=== PATIENT | female | born 1945 | race Caucasian/White ===

== ENCOUNTER 2018-11-27 02:09 | Outpatient (CLI) | payer MEDICARE, BC, SELFPAY ==
[2018-11-27 11:47] LABS: ALT 22 U/L (12-78); AST 14 U/L (15-37); Albumin 3.5 g/dL (3.4-5.0); Alkaline Phosphatase 74 U/L (46-116); Anion Gap 8.6 mmol/L (3-11); BUN 19 mg/dL (7-18); Bilirubin, Total 0.3 mg/dL (0.2-1.0); CO2 30.4 mmol/L (21.0-32.0); CREATININE 0.74 mg/dL (0.55-1.02); Calcium 9.3 mg/dL (8.5-10.1); Chloride 103 mmol/L (98-107); Cholesterol 193 mg/dL (50-200); Glucose 97 mg/dL (70-100); HDL Cholesterol 49 mg/dL (40-60); LDL CHOLESTEROL 117 mg/dL (<100); Potassium 4.3 mmol/L (3.5-5.1); Sodium 142 mmol/L (136-145); Total Protein 6.9 g/dL (6.4-8.2); Triglyceride 155 mg/dL (30-150)
== END 2018-11-27 02:29 ==
DX: E78.5 Hyperlipidemia, unspecified (principal); I10 Essential (primary) hypertension; F17.200 Nicotine dependence, unspecified, uncomplicated
CPT/HCPCS: 36415; 80053; 80061; 83721

== ENCOUNTER 2019-11-25 02:36 | Outpatient (CLI) | payer MEDICARE, BC, SELFPAY ==
[2019-11-25 12:01] LABS: ALT 21 U/L (14-59); AST 13 U/L (15-37); Albumin 3.7 g/dL (3.4-5.0); Alkaline Phosphatase 73 U/L (46-116); Anion Gap 6.5 mmol/L (3-11); BUN 20 mg/dL (7-18); Bilirubin, Total 0.4 mg/dL (0.2-1.0); CO2 32.5 mmol/L (21.0-32.0); CREATININE 0.71 mg/dL (0.55-1.02); Calcium 9.2 mg/dL (8.5-10.1); Calculated LDL 138 mg/dL (<100); Chloride 102 mmol/L (98-107); Cholesterol 221 mg/dL (<200); Glucose 104 mg/dL (74-106); HDL Cholesterol 48 mg/dL (40-60); Sodium 141 mmol/L (136-145); Triglyceride 175 mg/dL (<150)
== END 2019-11-25 02:56 ==
DX: E78.5 Hyperlipidemia, unspecified (principal); I10 Essential (primary) hypertension; F17.200 Nicotine dependence, unspecified, uncomplicated; E66.3 Overweight
CPT/HCPCS: 36415; 80053; 80061

== ENCOUNTER 2020-03-11 20:47 | Outpatient (REF) | payer MEDICARE, BC, SELFPAY | END 2020-03-11 21:07 | LOC: LBN 20:47 | PROVIDERS: Visit Provider Nurse Practitioner Family | DX: N30.90 Cystitis, unspecified without hematuria (principal) | CPT/HCPCS: 87086 ==

== ENCOUNTER 2020-11-18 02:46 | Outpatient (CLI) | payer MEDICARE, OTHER, SELFPAY ==
[2020-11-18 13:33] LABS: ALT 24 U/L (14-59); AST 17 U/L (15-37); Albumin 3.8 g/dL (3.4-5.0); Alkaline Phosphatase 61 U/L (46-116); Anion Gap 1.4 mmol/L (3-11); BUN 23 mg/dL (7-18); Bilirubin, Total 0.3 mg/dL (0.2-1.0); CO2 32.6 mmol/L (21.0-32.0); CREATININE 0.83 mg/dL (0.55-1.02); Calcium 9.1 mg/dL (8.5-10.1); Calculated LDL 126 mg/dL (<100); Chloride 103 mmol/L (98-107); Cholesterol 207 mg/dL (<200); Glucose 100 mg/dL (74-106); HDL Cholesterol 49 mg/dL (40-60); Potassium 4.3 mmol/L (3.5-5.1); Sodium 137 mmol/L (136-145); TSH (W/Ref FT4) 1.49 uIU/mL (0.36-3.74); Triglyceride 160 mg/dL (<150)
== END 2020-11-18 03:06 ==
DX: I10 Essential (primary) hypertension (principal); R53.83 Other fatigue; F17.200 Nicotine dependence, unspecified, uncomplicated; E66.3 Overweight; G47.00 Insomnia, unspecified
CPT/HCPCS: 36415; 80053; 80061; 84443

== ENCOUNTER 2022-02-15 05:18 | Outpatient (CLI) | payer MEDICARE, OTHER, SELFPAY ==
[2022-02-15 13:22] LABS: ALT 21 U/L (14-59); AST 14 U/L (15-37); Albumin 3.6 g/dL (3.4-5.0); Alkaline Phosphatase 77 U/L (46-116); Anion Gap 6.4 mmol/L (3-11); BUN 17 mg/dL (7-18); Bilirubin, Total 0.4 mg/dL (0.2-1.0); CO2 30.6 mmol/L (21.0-32.0); CREATININE 0.7 mg/dL (0.55-1.02); Calcium 8.5 mg/dL (8.5-10.1); Calculated LDL 123 mg/dL (<100); Chloride 103 mmol/L (98-107); Cholesterol 197 mg/dL (<200); Glucose 117 mg/dL (74-106); HDL Cholesterol 52 mg/dL (40-60); Potassium 4.1 mmol/L (3.5-5.1); Sodium 140 mmol/L (136-145); Total Protein 6.6 g/dL (6.4-8.2); Triglyceride 111 mg/dL (<150)
== END 2022-02-15 05:19 | disposition home or self-care (01) ==
LOC: LOS 05:18
DX: E78.5 Hyperlipidemia, unspecified (principal)
CPT/HCPCS: 36415; 80053; 80061

== ENCOUNTER 2022-03-08 11:43 | Outpatient (CLI) | payer MEDICARE, OTHER, SELFPAY ==
--- NOTE | 2022-03-08 11:30 | RT.EKG_ITS ---
APPROVED REPORT Exam: Resting ECG Reason for Exam: Tightness in Chest Patient Location: O HR:61 bpm ECG Measurements Heart Rate 61 AXIS MD 139 P 74 QRSd 105 QRS 0 QT 475 T 19 QTc 478 Conclusion Sinus rhythm...normal P axis, V-rate 50- [address] depression, lateral leads...ST <-0.07mV, I aVL V5 V6
== END 2022-03-08 11:44 | disposition home or self-care (01) ==
LOC: DI.CM 11:43
PROVIDERS: Visit Provider Physician Assistant
DX: R07.89 Other chest pain (principal)
CPT/HCPCS: 93010

== ENCOUNTER → 2022-05-04 01:39 | Outpatient (CLI) | payer MEDICARE, OTHER, SELFPAY ==
--- NOTE | 2022-05-04 07:45 | DI.US_ITS ---
Exam(s) US AXILLA RT EXAM: US AXILLA RT CLINICAL HISTORY: Validate lipoma - new mass, unspecified lump axillary tail rt breast,N63.31 TECHNIQUE: Ultrasound right axilla performed using standard protocol. COMPARISON: No exams were available for comparison FINDINGS: This study was limited to the axilla, as per request. Study does not reveal evidence of solid or significant cystic masses. A benign-appearing lymph node measuring 3.6 x 0.9 cm is noted in the axilla. No evidence of obvious lipoma. IMPRESSION: No sonographically suspicious finding in the right axilla. I note that this patient does not had a mammogram in some time. DATA REPOSITORY:
== END ==
DX: N63.31 Unspecified lump in axillary tail of the right breast (principal)
CPT/HCPCS: 76642